=== PATIENT | female | born 1980 | race Caucasian/White ===

== ENCOUNTER 2018-10-09 01:10 | Inpatient (IN) | payer BC ==
[~2018-10-09] VITALS: Ht 157.5 cm; Wt 81.8 kg
[2018-10-09 01:28] VITALS: Ht 157.5 cm; Wt 81.8 kg
--- NOTE | 2018-10-09 01:43 | NUR ---
PT. IN ED WITH SHARP EPIGASTRIC PAIN 10/10 SINCE LAST NIGHT AFTER EATING DINNER. STATES SHE HAD THIS PAIN APROX 10YRS AGO BUT IT RESOLVED ON ITS OWN. ALSO REPORTS DIARRHEA, DENIES N/V. PT. AAOX4, TALKING AND RESPONDING APPROPRIATELY. STATES THE PAIN COMES AND GOES AND IS CURRENTLY 2/10. NOT IN ANY APPARENT DISTRESS. AMBULATED TO RESTROOM WITH STEADY GAIT. FAMILY AT BEDSIDE.
--- NOTE | 2018-10-09 02:46 | NUR ---
PT. TAKEN TO CT VIA WHEELCHAIR.
--- NOTE | 2018-10-09 02:51 | NUR ---
PT. BACK FROM CT, AMBULATES TO BED WITH STEADY GAIT.
[2018-10-09 03:17] LABS: PLATELET COUNT 352 x10^3mcL (130-400); RED CELL DISTRIBUTION WIDTH 14.3 % (11.5-14.5)
[2018-10-09 03:22] LABS: CALCIUM 9.3 mg/dL (8.5-10.1); CARBON DIOXIDE 29.9 mmol/L (21-32); CHLORIDE SERUM 100 mmol/L (98-107); CREATININE SERUM 0.9 mg/dL (0.6-1.0); GFR1 > 60 mL/min; GLUCOSE SERUM 113 mg/dL (74-106); SODIUM SERUM 136 mmol/L (136-145)
[2018-10-09 03:27] LABS: ALBUMIN 3.5 g/dL (3.4-5.0); ALKALINE PHOSPHATASE 66 U/L (46-116); ALT/SGPT 27 U/L (14-59); AST/SGOT 11 U/L (15-37); BILIRUBIN TOTAL 0.1 mg/dL (0.20-1.00); LIPASE 88 IU/L (73-393); TOTAL PROTEIN, SERUM 7.9 g/dL (6.4-8.2)
[2018-10-09 03:57] LABS: BAND NEUTROPHIL 4 % (0-10); MONOCYTE 3 % (0-7); SEGMENTED NEUTROPHILS 88 % (37-75)
[2018-10-09 04:02] LABS: rbc morphology (normal/abnorm) ABNORMAL (NORMAL)
--- NOTE | 2018-10-09 04:03 | NUR ---
PATIENT IS AWAKE, LAURI ANY PAIN AT THIS TIME. RESIDENT AT THE BEDSIDE.
--- NOTE | 2018-10-09 05:00 | NUR ---
PATIENT TRANSPORTED TO ROOM 222B.
--- NOTE | 2018-10-09 05:00 | NUR ---
PT ADVISED FOR NEED TO COLLECT URINE SAMEPLE AND TOILET HAT PROVIDED.
[2018-10-09 05:16] LABS: CHOLESTEROL/HDL RATIO 4.8; MAGNESIUM 1.7 mg/dL (1.8-2.4)
[2018-10-09 05:22] LABS: T3 TOTAL 1.46 ng/mL
[2018-10-09 05:27] LABS: FREE T4 0.85 ng/dL (0.76-1.46); FREE THYROXINE INDEX 2.2 ug/dL (1.4-4.5); T4(THYROXINE) 7.4 ug/dL (4.7-13.3)
[2018-10-09 05:30] VITALS: BP 114/69
--- NOTE | 2018-10-09 05:54 | NUR ---
PT ADVISED FOR NEED TO COLLECT URINE SAMEPLE AND TOILET HAT PROVIDED.
--- NOTE | 2018-10-09 07:27 | NUR ---
NO SIGNIFICANT CHANGES TO REPORT, PT COMPLIED WITH NURSING CARE THROUGHOUT THE SHIFT WITH NO ACUTE EVENTS OVERNIGHT. COMFORT AND SAFETY MEASURES MAINTAINED. REPORT GIVEN TO DAVIN CORCORAN. ALL QUESTIONS AND CONCERNS ADDRESSED. ALL CARES ENDORSED. NO ACUTE DISTRESS OBSERVED IN PT AT THIS TIME, BREATHING EVEN AND UNLABORED.
--- NOTE | 2018-10-09 08:00 | NUR ---
AAOX4; NO SOB AT RM AIR; DENEIS NAUSEA, VOMITTING OR DIARRHEA AT THIS TIME; SHE REPORTS THAT HER LAST DIARRHEAL EPISODE WAS LAST NIGHT. NSS AT 100 ML/HR INFUSING; RAC SITE PATENT AND WITHOUT INFILTRATION. FALL AND SAFETY PRECAUTION REINFORCED; WILL CONTINUE TO MONITOR STATUS.
[2018-10-09 08:22] VITALS: BP 118/63
[2018-10-09 08:36] LABS: BASOPHIL % 0.1 % (0-2); PLATELET COUNT 347 x10^3mcL (130-400)
[2018-10-09 08:38] LABS: RED CELL DISTRIBUTION WIDTH 14.6 % (11.5-14.5)
[2018-10-09 09:12] LABS: CALCIUM 8.8 mg/dL (8.5-10.1); CARBON DIOXIDE 28.2 mmol/L (21-32); CHLORIDE SERUM 101 mmol/L (98-107); CREATININE SERUM 0.8 mg/dL (0.6-1.0); GFR1 > 60 mL/min; GLUCOSE SERUM 113 mg/dL (74-106); MAGNESIUM 1.8 mg/dL (1.8-2.4); PHOSPHOROUS 4.4 mg/dL (2.5-4.9); POTASSIUM SERUM 4.2 mmol/L (3.5-5.1); SODIUM SERUM 136 mmol/L (136-145)
--- NOTE | 2018-10-09 11:00 | NUR ---
PT SLEEPING. NO SOB
--- NOTE | 2018-10-09 12:30 | NUR ---
PT STATES SHE HAD ONE EPISODE OF DIARRHEA SINCE THE START OF THIS SHIFT. DIET ADVANCED TO FULL LIQUID FOR LUNCH.
[2018-10-09 13:05] VITALS: BP 118/63
[2018-10-09] MEDS ORDERED: IMODIUM A-D2 M4 PO (13:24)
[2018-10-09 17:17] VITALS: BP 108/62
--- NOTE | 2018-10-09 18:13 | NUR ---
PT STATES SHE HAD A TOTAL OF 5 DIARRHEAL EPISODES, YELLOWISH IN COLOR; THE AMOUNT IS LESSER THAN WHAT SHE REPORTED AT NOON. PT HAS ORDER FOR DC TO HOME AND PT IS MADE AWARE. PT ADVANCED TO REGULAR DIET FOR DINNER. NO COMPLAINTS OF PAIN THIS SHIFT. NO NEW ACUTE CHANGES IN STATUS.
--- NOTE | 2018-10-09 18:42 | NUR ---
DC INSTRUCTIONS GIVEN TO PT WITHVERBAL UNDERSTANDING; COPIES AND PRESCRIPTION GIVEN. IVF DC'S; CATH TAKEN OUT FROM [facility] IS INTACT. PT TOLERATED REGULAR DIET WITHOUT C/O N/V. PT IS GETTING READY TO LEAVE UNIT. FAMILY IN THE ROOM; NO FURTHER COMPLAINTS.
== END 2018-10-09 18:50 | disposition home or self-care (01) | DRG 392 ==
LOC: ED 01:10 → MU 04:06
PROVIDERS: Emergency Medicine; ADMIT Internal Medicine
DX: A08.4 Viral intestinal infection, unspecified (principal); D72.829 Elevated white blood cell count, unspecified; Z90.49 Acquired absence of other specified parts of digestive tract
CPT/HCPCS: 83880; 84439; J2270; J2405; J2543; J7030

== ENCOUNTER 2019-10-07 13:33 | Emergency (ER) | payer BC ==
[~2019-10-07] VITALS: Ht 157.5 cm; Wt 70.3 kg
[~2019-10-07 13:33] MED LIST: IMODIUM A-D2 M4 PO
[2019-10-07 14:00] VITALS: Ht 157.5 cm; Wt 70.3 kg
[2019-10-07 14:42] LABS: BASOPHIL % 0.1 % (0-2); PLATELET COUNT 343 x10^3mcL (130-400)
[2019-10-07 14:45] LABS: RED CELL DISTRIBUTION WIDTH 14.9 % (11.5-14.5)
[2019-10-07 14:53] LABS: microscopic required? YES; urine erythrocyte 2+ (NEGATIVE)
[2019-10-07 15:55] LABS: CALCIUM 8.6 mg/dL (8.5-10.1); CARBON DIOXIDE 29.8 mmol/L (21-32); CHLORIDE SERUM 101 mmol/L (98-107); CREATININE SERUM 0.7 mg/dL (0.6-1.0); GFR1 > 60 mL/min; GLUCOSE SERUM 114 mg/dL (74-106); POTASSIUM SERUM 3.8 mmol/L (3.5-5.1); SODIUM SERUM 138 mmol/L (136-145)
[2019-10-07 15:59] LABS: ALBUMIN 3.6 g/dL (3.4-5.0); ALKALINE PHOSPHATASE 76 U/L (46-116); ALT/SGPT 25 U/L (14-59); AST/SGOT 13 U/L (15-37); BILIRUBIN TOTAL 0.3 mg/dL (0.20-1.00); CHOLESTEROL 185 mg/dL (<200); HDL CHOLESTEROL 37 mg/dL (40-60); TRIGLYCERIDES 90 mg/dL (<150)
[2019-10-07 17:23] VITALS: BP 125/57
== END 2019-10-07 17:23 | disposition home or self-care (01) ==
LOC: ED 13:33
PROVIDERS: Specialist
DX: R10.13 Epigastric pain (principal); Z90.49 Acquired absence of other specified parts of digestive tract; Z98.890 Other specified postprocedural states
CPT/HCPCS: J2405; J3010; J3490; J7030

== ENCOUNTER 2020-04-16 18:51 | Emergency (ER) | payer BC ==
[~2020-04-16] VITALS: Ht 157.5 cm; Wt 72.6 kg
[2020-04-16 19:18] VITALS: Ht 157.5 cm; Wt 72.6 kg
[2020-04-16 21:04] VITALS: BP 128/59
== END 2020-04-16 21:04 | disposition home or self-care (01) ==
LOC: ED 18:51
DX: S81.812A Laceration without foreign body, left lower leg, initial encounter (principal); W20.8XXA Other cause of strike by thrown, projected or falling object, initial encounter; Y93.89 Activity, other specified; Y92.89 Other specified places as the place of occurrence of the external cause; Y99.8 Other external cause status
CPT/HCPCS: 90715; J2001